=== PATIENT | female | born 1965 | race Caucasian/White ===

== ENCOUNTER → 2023-09-27 | Outpatient (REF) | LOC: M PLAIMG 10:19 | PROVIDERS: ATTEND Internal Medicine | DX: R52 Pain, unspecified (principal); M46.96 Unspecified inflammatory spondylopathy, lumbar region ==

== ENCOUNTER → 2024-05-21 | Outpatient (REF) | payer OTHER | LOC: M LAB REF 07:46 | PROVIDERS: ATTEND Physician Assistant | DX: L82.1 Other seborrheic keratosis (principal) ==

== ENCOUNTER → 2025-05-07 | Outpatient (CLI) | payer MEDICAID, MEDICARE ==
[~2025-05-07] MED LIST: ATOR40TA75 PO; FARX1TAB3 PO; FLUT1BLS8; GABA-1172 PO; GABA-284 PO; JARD1TAB PO; LISI30TA4 PO; METF10004 PO; SEMA0.257; TORS20TA2 PO; VENTAER INH; VITA100093 PO
== END ==
LOC: M RAD 15:35
PROVIDERS: ATTEND Physician Assistant
DX: R60.9 Edema, unspecified (principal); I89.0 Lymphedema, not elsewhere classified; I87.2 Venous insufficiency (chronic) (peripheral)